=== PATIENT | female | born 1960 ===

== ENCOUNTER 2023-11-02 12:23 | Outpatient (CLI) | payer BC, SELFPAY ==
--- NOTE | 2023-11-02 12:32 | XR_ITS ---
WS: [id number] SCREENING DEXA SCAN [employer] CLINICAL INFORMATION: ASYMPTOMATIC MENOPAUSAL STATE COMPARISON: None. FINDINGS: The L1-L4 bone mineral density measures 0.954 g/cm2. This corresponds to a T score score of -1.9 and Z score of -0.9. Left femoral neck bone mineral density measures 0.854 g/cm2. This corresponds to a T score of -1.2 an d Z score of -0.5. Right femoral neck bone mineral density measures 0.830 g/cm2. This corresponds to a T score -1.4of an d Z score of -0.7. Mean femoral neck bone mineral density measures 0.842 g/cm2. This corresponds to a T score of -1.3 an d Z score of -0.6. XR/XR DEXA axial skeleton* [id number] IMPRESSION: Osteopenia lumbar spine. Osteopenia femoral necks. Patient's FRAX calculated 10 year probability for major osteoporotic fracture i s 10.1% and osteoporotic hip fracture is 1.4%.
--- NOTE | 2023-11-02 12:32 | MM_ITS ---
WS: [id number] Bilateral screening 3D tomosynthesis digital mammogram, 11/02/2023 Clinical Data: SCREENING Comparison: 05/09/2016, 04/01/2016, 06/14/2012, 05/09/2012. Findings: The breast parenchymal pattern shows fibroglandular tissue. No spiculated masses or clustered calcifi cations are seen. There are no secondary signs of carcinoma. Mole markers are on both breasts. MM/[place] [id number] Impression: 1. Negative bilateral mammogram unchanged. 2. Recommend annual screening mammograms. BIRADS: 1-Negative FOLLOW UP: 1 Year Follow-up The CAD relay checker was used.
== END 2023-11-02 12:24 | disposition home or self-care (01) ==
LOC: RAD 12:24
PROVIDERS: Family Provider Family Medicine; PCP Family Medicine; Visit Provider Electrodiagnostic Medicine
DX: Z12.31 Encounter for screening mammogram for malignant neoplasm of breast (principal); Z78.0 Asymptomatic menopausal state
CPT/HCPCS: 77063; 77067; 77080